=== PATIENT | male | born 1990 | race Caucasian/White ===

== ENCOUNTER 2019-04-17 16:26 | Emergency (ER) | payer SELFPAY ==
[2019-04-17] MEDS ORDERED: LORA-441 PO (22:32)
[2019-04-17] MEDS ORDERED: PROP40TA4 PO (22:32)
[2019-04-18] MEDS ORDERED: SERT50TA PO (00:23)
[2019-04-18] MEDS ORDERED: TRAZ-111 PO (00:24)
== END 2019-04-17 17:52 | disposition left against medical advice (07) ==
LOC: E/R 16:26
DX: Z53.21 Procedure and treatment not carried out due to patient leaving prior to being seen by health care provider (principal)

== ENCOUNTER 2019-04-17 18:40 | Emergency (ER) | payer SELFPAY ==
[~2019-04-17] VITALS: Ht 172.7 cm; Wt 55.9 kg
[2019-04-17 19:11] VITALS: Ht 172.7 cm; Wt 55.9 kg
[2019-04-17] MEDS ORDERED: LORAZEPAM 2 MG INJ IM ONE (22:30)
[2019-04-17] MEDS ORDERED: PROP40TA4 PO (22:32)
[2019-04-17] MEDS ORDERED: LORA-441 PO (22:32)
--- NOTE | 2019-04-17 22:41 | ERD ---
ER Documentation Chief Complaint Chief Complaint c/o anxiety since last night, c/o cp/sob HPI History of Present Illness: 29-year-old male who reports a past medical history of anxiety and insomnia coming in today with restlessness, anxiety since last night. Associated symptoms includes chest pain shortness of breath. Patient reports going to [facility] in [place] for his primary care doctor. Patient reports unable to see his primary care doctor because he has been with [place]. Patient reports that he used to take Xanax for his anxiety but recently was started on Ativan propanolol. Patient admits to tobacco use and marijuana, denies any other illicit drug use. Patient reports being out of his Ativan and propanolol for 2 days. At home pharmacological/nonpharmacological treatment for symptoms: Denies Denies social concerns; Denies recent foreign travel ROS All systems reviewed and are negative except as per history of present illness. Medications Home Meds Active Scripts Propranolol Hcl* (Propranolol Hcl*) 40 Mg Tablet, 40 MG PO DAILY for ANXIETY for 30 Days, TAB Prov:YOHAN HERNANDEZ V DESK REPRESENTATIVE 04/17/19 Lorazepam* (Ativan*) 0.5 Mg Tablet, 0.5 MG PO Q8H PRN for ANXIETY, #10 TAB Prov:YOHAN HERNANDEZ V DESK REPRESENTATIVE 04/17/19 Allergies Allergies: Coded Allergies: acetaminophen (Verified Allergy, Unknown, swelling, 04/17/19) codeine (Verified Allergy, Unknown, swelling, 04/17/19) hydrocodone (Verified Allergy, Unknown, swelling, 04/17/19) PMhx/Soc History of Surgery: Yes (renal stent) Hx Miscellaneous Medical Probl: Yes (anxiety, insomnia, depression) Hx Alcohol Use: Yes (social) Hx Substance Use: Yes (marijuana) Hx Tobacco Use: Yes Smoking Status: Current some day smoker FmHx Family History: No diabetes, No coronary disease Physical Exam Vitals Vital Signs Date Temp Pulse Resp B/P (MAP) Pulse Ox O2 O2 Flow FiO2 Time Delivery Rate 04/17/19 97.0 89 18 117/65 100 19:11 (82) Physical Exam Const: No acute distress, anxious appearing Head: Atraumatic Eyes: Normal Conjunctiva ENT: Normal External Ears, Nose and Mouth. Neck: Full range of motion. No meningismus. Resp: Clear to auscultation bilaterally Cardio: Regular rate and rhythm, no murmurs Abd: Soft, non tender, non distended. Normal bowel sounds Skin: No petechiae or rashes Back: No midline or flank tenderness Ext: No cyanosis, or edema Neur: Awake and alert Psych: Normal Mood and Affect Results 24 hrs Laboratory Tests Test 04/17/19 21:16 Troponin I < 0.012 ng/ml Urine Opiates Screen Negative Urine Barbiturates Negative Urine Amphetamines Screen Positive Urine Benzodiazepines Screen Negative Urine Cocaine Screen Negative Urine Cannabinoids Positive Current Medications Medications Dose Sig/Candace Start Time Status Last (Trade) Ordered Route PRN Stop Time Admin Dose Reason Admin Lorazepam 1 mg ONCE ONCE 04/17/19 DC (Ativan) IM 22:30 04/17/19 22:34 Procedures/MDM ED course includes a thorough examination and history. Medications: Ativan IM Imaging: Chest x-ray Labs: Troponin, UDS Low suspicion for life-threatening medical emergency. Low suspicion for cardiopulmonary emergency requires hospitalization or immediate surgical intervention EKG at 1914: Rate/Rhythm: Normal Sinus Rhythm, ventricular rate 83 QRS, ST, T-waves: No changes consistent w/ acute ischemia Impression: No evidence of ischemia or arrhythmia Otherwise healthy patient presenting with constellation of symptoms likely representing methamphetamine abuse, anxiety as characterized by history, physi stacie exam findings, radiology findings, lab findings. Troponin negative. UDS positive for amphetamines and marijuana. Chest x-ray results showing IMPRESSION: No acute disease. .Olaf Denton MD, MD Date Time Electronically viewed and signed by .Olaf Denton MD, MD on 04/17/2019 22:30 Patient case discussed with ED Dr. Campbell. Agrees with plan of care. Patient reassessment 2240: Patient hemodynamically stable. No respiratory distress, otherwise relatively well appearing and nontoxic. Disposition given. Patient educated on diagnoses, prescriptions, follow-up care, return precautions. Strict return precautions given for worsening condition; questions answered discharge. Patient verbalizes understanding of discharge instructions, results, follow-up, plan of care for return precautions. Disposition for discharge with followup in 2 days with PCP/clinic. Departure Diagnosis: Primary Impression: Anxiety Additional Impressions: Amphetamine abuse Medication refill Condition: Stable Patient Instructions: Anxiety Reaction, Drug Abuse Referrals: COMMUNITY CLINICS YOU HAVE RECEIVED A MEDICAL SCREENING EXAM AND THE RESULTS INDICATE THAT YOU DO NOT HAVE A CONDITION THAT REQUIRES URGENT TREATMENT IN THE EMERGENCY DEPARTMENT. FURTHER EVALUATION AND TREATMENT OF YOUR CONDITION CAN WAIT UNTIL YOU ARE SEEN IN YOUR DOCTORS OFFICE WITHIN THE NEXT 1-2 DAYS. IT IS YOUR RESPONSIBILITY TO MAKE AN APPOINTMENT FOR FOLOW-UP CARE. IF YOU HAVE A PRIMARY DOCTOR --you should call your primary doctor and schedule an appointment IF YOU DO NOT HAVE A PRIMARY DOCTOR YOU CAN CALL OUR PHYSICIAN REFERRAL HOTLINE AT IF YOU CAN NOT AFFORD TO SEE A PHYSICIAN YOU CAN CHOSE FROM THE FOLLOWING [facility] [address] [facility] [address] [facility] [address] [facility] [address] [facility] [address] [facility]. [facility] [address] [facility] [facility] YOU HAVE RECEIVED A MEDICAL SCREENING EXAM AND THE RESULTS INDICATE THAT YOU DO NOT HAVE A CONDITION THAT REQUIRES URGENT TREATMENT IN THE EMERGENCY DEPARTMENT. FURTHER EVALUATION AND TREATMENT OF YOUR CONDITION CAN WAIT UNTIL YOU ARE SEEN IN YOUR DOCTORS OFFICE WITHIN THE NEXT 1-2 DAYS. IT IS YOUR RESPONSIBILITY TO MAKE AN APPOINTMENT FOR FOLOW-UP CARE. IF YOU HAVE A PRIMARY DOCTOR --you should call your primary doctor and schedule and appointment IF YOU DO NOT HAVE A PRIMARY DOCTOR YOU CAN CALL OUR PHYSICIAN REFERRAL HOTLINE AT . IF YOU CAN NOT AFFORD TO SEE A PHYSICIAN YOU CAN CHOSE FROM THE FOLLOWING COMM[facility] INSTITUTIONS: [facility] [address] [place] [address] [facility] [address] [place] [address] [facility] [address] [place] [address] Additional Instructions: Thank you very much for allowing us to participate in your care. Your health and safety is our top priority at [facility]. It is important to read all discharge instructions and education provided in your discharge packet. *Stop amphetamines if this medication is not prescribed for you. This can cause increased heart rate, and feelings of anxiety. Taking medications that are not prescribed for you can be life-threatening.* *It is important to see your primary care doctor for further medication refills. If you are unable to see your primary care doctor, I have given you referrals to different primary care doctors in the [place] so that you can reestablish care.* *You will be giving a one-time refill of Ativan as well as propanolol* Call your primary care doctor TOMORROW for an appointment during the next 2-4 days and bring all the information and medications prescribed. Have prescriptions filled and follow precisely the directions on the label. If the symptoms get worse and your provider is unavailable, return to the Emergency Department immediately. YOHAN HERNANDEZ NP Apr 17, 2019 22:41
[2019-04-18] MEDS ORDERED: SERT50TA PO (00:23)
[2019-04-18] MEDS ORDERED: TRAZ-111 PO (00:24)
--- NOTE | 2019-04-18 00:27 | EN ---
Date/Time of Note Date/Time of Note DATE: 04/18/19 TIME: 00:25 ER Progress Note Patient was discharge however he want to speak to me about other prescriptions he need refills on. State he also takes zoloft and trazodone for depression and insomnia. Wasn't able to refill prescriptions with psych because he is in the process of switching psychiatrist refills for zoloft and trazodone given short term. Advised to keep appointment with psychiatry for further management and med refills. MELY BALDWIN DO Apr 18, 2019 00:27
[2019-04-18 00:28] VITALS: BP 122/77; PULSE 97; RESP 18
== END 2019-04-18 00:29 | disposition home or self-care (01) ==
LOC: FTE 18:40
DX: F41.9 Anxiety disorder, unspecified (principal); F17.210 Nicotine dependence, cigarettes, uncomplicated; F15.10 Other stimulant abuse, uncomplicated; Z76.0 Encounter for issue of repeat prescription
CPT/HCPCS: 71046; 80307; 84484; 93005; 96372; 99285; J2060